=== PATIENT | male | born 1955 | race Two or more races ===

== ENCOUNTER 2017-12-07 10:26 | Emergency (ER) | payer MEDICARE, SELFPAY ==
[~2017-12-07] VITALS: Ht 180.3 cm; Wt 85.0 kg
[2017-12-07 12:00] VITALS: BP 137/55
[2017-12-07 12:03] LABS: ANION GAP 9 mmol/L (5-15); CHLORIDE 107 mmol/L (98-107)
[2017-12-07 12:04] LABS: INTERNATIONAL NORMALIZED RATIO 1.71 (0.93-1.1); PROTHROMBIN TIME 17.6 Seconds (9.6-11.5)
[2017-12-07 12:09] LABS: ALANINE AMINOTRANSFERASE 24 U/L (12-78); ALKALINE PHOSPHATASE 122 U/L (45-117); BILIRUBIN,TOTAL 3.3 mg/dL (0.2-1.0); CREATININE 0.86 mg/dL (0.7-1.3); TOTAL PROTEIN 5.9 g/dL (6.4-8.2); TROPONIN I < 0.015 ng/mL (0.000-0.045)
[2017-12-07 12:27] LABS: MEAN CORPUSCULAR HGB CONC 30.5 g/dL (33.2-36.2); MEAN CORPUSCULAR VOLUME 65.4 fL (81-97); MEAN PLATELET VOLUME 8.4 fL (7.4-10.4); PLATELET COUNT 177 x10^3/uL (130-400); RED BLOOD COUNT 3.13 x10^6/uL (4.38-5.82); RED CELL DISTRIBUTION WIDTH 26.1 % (9.4-14.8)
[2017-12-07 12:29] LABS: MD YES
[2017-12-07 12:55] LABS: LYMPH#(MANUAL) 0.54 x10^3/uL (1-3.4); LYMPHS% (MANUAL) 10 % (22-44); MONOS#(MANUAL) 0.49 x10^3/uL (0.3-2.7); MONOS% (MANUAL) 9 % (2-9); SEG#(MANUAL) 4.37 x10^3/uL (1.8-6.8); SEGS% (MANUAL) 81 % (42-75)
[2017-12-07 12:56] LABS: ANISOCYTOSIS 3+; MICROCYTOSIS 2+
[2017-12-07 12:57] LABS: HYPOCHROMIA 3+
[2017-12-07 12:58] LABS: OVALOCYTES 1+
[2017-12-07 12:59] LABS: <PLATELET ESTIMATE> ADEQUATE; <PLT MORPHOLOGY> NORMAL PLT MORPH
[2017-12-07 13:02] LABS: SCHISTOCYTES 2+
== END 2017-12-07 13:08 | disposition left against medical advice (07) ==
LOC: ED 12:05
DX: T86.42 Liver transplant failure (principal); D63.8 Anemia in other chronic diseases classified elsewhere
CPT/HCPCS: 36415; 71045; 80053; 83690; 83880; 84484; 85025; 85610; 93005; 99285

== ENCOUNTER 2017-12-17 13:36 | Inpatient (IN) | payer OTHER ==
[~2017-12-17] VITALS: Ht 172.7 cm; Wt 84.4 kg
[2017-12-17] MEDS ORDERED: ALBUTEROL SULFATE 2.5 MG/3 ML ONE ×2 (13:47→18:16)
[2017-12-17] MEDS ORDERED: SODIUM CHLORIDE 0.9%, 500ML IVBOLUS ONE (14:00)
[2017-12-17] MEDS ORDERED: SODIUM CHLORIDE FLUSH 10ML SYR IVF ONE (14:00)
[2017-12-17] MEDS ORDERED: PROPOFOL 100 ML IV PRN (14:12)
[2017-12-17] MEDS ORDERED: FENTANYL PF 100 MCG/2ML ONE (14:14)
[2017-12-17] MEDS ORDERED: ROCURONIUM 10 MG/ML,10ML IVPush ONE (14:30)
[2017-12-17] MEDS ORDERED: FENTANYL PF 100 MCG/2ML IV ONE (14:30)
[2017-12-17] MEDS ORDERED: ETOMIDATE 20 MG/10 ML IVPush ONE (14:30)
[2017-12-17 14:34] LABS: ALANINE AMINOTRANSFERASE 24 U/L (12-78); ALBUMIN 1.7 g/dL (3.4-5.0); ANION GAP 12 mmol/L (5-15); CALCIUM 8.3 mg/dL (8.5-10.1); CHLORIDE 105 mmol/L (98-107); CREATININE 1.43 mg/dL (0.7-1.3)
[2017-12-17 14:37] LABS: ALKALINE PHOSPHATASE 153 U/L (45-117); BILIRUBIN,TOTAL 6.2 mg/dL (0.2-1.0); SALICYLATE LEVEL < 1.7 mg/dL (2.8-20.0)
[2017-12-17 14:38] LABS: ACETAMINOPHEN < 2 mcg/mL (10-30)
[2017-12-17] MEDS ORDERED: SODIUM CHLORIDE 0.9% 1,000ML IVBOLUS ONE ×2 (15:00→22:30)
[2017-12-17] MEDS ORDERED: AMPICILLIN/SULBACTAM 3 GM in SODIUM CHLORIDE 0.9% 100 ML IV ONE (15:00)
[2017-12-17 15:06] LABS: INTERNATIONAL NORMALIZED RATIO 2.39 (0.93-1.1); PROTHROMBIN TIME 24.4 Seconds (9.6-11.5)
[2017-12-17 15:08] LABS: MEAN CORPUSCULAR HEMOGLOBIN 20.3 pg (27.5-34.5); MEAN CORPUSCULAR HGB CONC 30.5 g/dL (33.2-36.2); MEAN CORPUSCULAR VOLUME 66.5 fL (81-97); MEAN PLATELET VOLUME 7.6 fL (7.4-10.4); PLATELET COUNT 370 x10^3/uL (130-400); RED BLOOD COUNT 3.85 x10^6/uL (4.38-5.82); RED CELL DISTRIBUTION WIDTH 27.3 % (9.4-14.8)
[2017-12-17 15:13] LABS: MICROSCOPIC INDICATED
[2017-12-17 15:15] LABS: CULTURE INDICATED? NO
[2017-12-17 15:29] LABS: MD YES
[2017-12-17 15:32] LABS: ANISOCYTOSIS 3+; BAND#(MANUAL) 1.54 x10^3/uL; BANDS%(MANUAL) 4 % (0-7); HYPOCHROMIA 2+; LYMPH#(MANUAL) 0.77 x10^3/uL (1-3.4); LYMPHS% (MANUAL) 2 % (22-44); MICROCYTOSIS 2+; MONOS#(MANUAL) 0.77 x10^3/uL (0.3-2.7); MONOS% (MANUAL) 2 % (2-9); OVALOCYTES 1+; POLYCHROMASIA 1+; SEG#(MANUAL) 35.33 x10^3/uL (1.8-6.8); SEGS% (MANUAL) 92 % (42-75)
[2017-12-17 15:33] LABS: <PLATELET ESTIMATE> ADEQUATE; <PLT MORPHOLOGY> NORMAL PLT MORPH
[2017-12-17 15:34] LABS: ACANTHOCYTES 1+
[2017-12-17] MEDS ORDERED: LORazepam 2 MG/ML, 1ML IVPush PRN (16:00)
[2017-12-17] MEDS ORDERED: ENALAPRILAT 1.25 MG/ML, 2ML IVPush PRN (16:00)
[2017-12-17] MEDS ORDERED: OXYcodone IR 5MG TABLET PO PRN (16:00)
[2017-12-17] MEDS ORDERED: ACETAMINOPHEN 325 MG TABLET PO PRN (16:00)
[2017-12-17] MEDS ORDERED: LABETALOL 5MG/ML, 20ML IVPush PRN (16:00)
[2017-12-17] MEDS ORDERED: ONDANSETRON ODT 4 MG PO PRN (16:00)
[2017-12-17] MEDS ORDERED: BISACODYL 10 MG SUPP PR PRN (16:00)
[2017-12-17] MEDS ORDERED: ONDANSETRON 2MG/ML, 2ML IVPush PRN (16:00)
[2017-12-17] MEDS ORDERED: POLYETHYLENE GLYCOL 17 GM PACKET PO PRN (16:00)
[2017-12-17 16:03] LABS: TROPONIN I < 0.015 ng/mL (0.000-0.045)
[2017-12-17 16:22] LABS: THYROID STIMULATING HORMONE 0.911 mIU/L (0.358-3.740)
[2017-12-17] MEDS: SODIUM CHLORIDE 0.9% 1,000 ML IV SCH (16:24)
[2017-12-17] MEDS ORDERED: LIDOCAINE-MPF 1%, 2ML ENDO PRN (16:30)
[2017-12-17] MEDS ORDERED: PHARMACY MAY ADJ FOR RENAL FX MC SCH (16:30)
[2017-12-17] MEDS ORDERED: ROCURONIUM 10 MG/ML,10ML ONE (16:31)
[2017-12-17] MEDS ORDERED: PROPOFOL 10 MG/ML, 100ML IV ONE (16:31)
[2017-12-17] MEDS ORDERED: ETOMIDATE 20 MG/10 ML ONE (16:31)
[2017-12-17 16:57] VITALS: BP 123/77
[2017-12-17] MEDS ORDERED: LACTULOSE 20 GM/30 ML UDC PO SCH (21:00)
[2017-12-17] MEDS: AMPICILLIN/SULBACTAM 3 GM in SODIUM CHLORIDE 0.9% 100 ML IV SCH (21:33)
[2017-12-17 21:37] LABS: TROPONIN I 0.404 ng/mL (0.000-0.045)
[2017-12-17] MEDS: PROPOFOL 100 ML IV PRN (22:29)
[2017-12-17] MEDS ORDERED: ALBUTEROL/IPRATROPIUM 2.5MG/0.5MG, 3 ML NPPB SCH (23:00)
[2017-12-17] MEDS: ALBUTEROL/IPRATROPIUM 2.5MG/0.5MG, 3 ML INLINE SCH (23:26)
[2017-12-18] MEDS: SODIUM CHLORIDE 0.9% 1,000 ML IV SCH (01:41)
[2017-12-18] MEDS: ALBUTEROL/IPRATROPIUM 2.5MG/0.5MG, 3 ML INLINE SCH ×6 (03:00→22:28)
[2017-12-18] MEDS: AMPICILLIN/SULBACTAM 3 GM in SODIUM CHLORIDE 0.9% 100 ML IV SCH ×4 (03:13→21:35)
[2017-12-18 04:00] VITALS: BP 103/50
[2017-12-18 04:49] LABS: ALANINE AMINOTRANSFERASE 22 U/L (12-78); ALBUMIN 1.6 g/dL (3.4-5.0); ANION GAP 22 mmol/L (5-15); CALCIUM 8.5 mg/dL (8.5-10.1); CHLORIDE 105 mmol/L (98-107); CREATININE 2.16 mg/dL (0.7-1.3)
[2017-12-18 04:51] LABS: PROTHROMBIN TIME 30.5 Seconds (9.6-11.5)
[2017-12-18 04:52] LABS: ALKALINE PHOSPHATASE 141 U/L (45-117); BILIRUBIN,TOTAL 5.3 mg/dL (0.2-1.0); CHOL/HDL RATIO 2.1; CHOLESTEROL, TOTAL 72 mg/dL (140-239); HDL CHOL % 47 % (26-37); HDL CHOLESTEROL (DIRECT) 34 mg/dL (40-60); MEAN CORPUSCULAR HEMOGLOBIN 20.1 pg (27.5-34.5); MEAN CORPUSCULAR HGB CONC 30.2 g/dL (33.2-36.2); MEAN CORPUSCULAR VOLUME 66.6 fL (81-97); MEAN PLATELET VOLUME 7.9 fL (7.4-10.4); PLATELET COUNT 265 x10^3/uL (130-400); RED BLOOD COUNT 3.49 x10^6/uL (4.38-5.82); RED CELL DISTRIBUTION WIDTH 25.9 % (9.4-14.8); TOTAL PROTEIN 5.1 g/dL (6.4-8.2)
[2017-12-18 04:54] LABS: LDL CHOLESTEROL,CALCULATED 25 mg/dL (54-169); LDL/HDL RATIO 0.7 (0.5-3.0); TRIGLYCERIDES 63 mg/dL (50-200); VLDL CHOLESTEROL 13 mg/dL (0-25)
[2017-12-18] MEDS: PROPOFOL 100 ML IV PRN ×2 (05:23→15:23)
[2017-12-18 05:30] LABS: AMPHETAMINE SCREEN, URINE Negative (Negative); BARBITURATE SCREEN, URINE Negative (Negative); BENZODIAZEPINE SCREEN, URINE Negative (Negative); CANNABINOID SCREEN, URINE Negative (Negative); COCAINE SCREEN, URINE Negative (Negative); METHADONE SCREEN, URINE Positive (Negative); OPIATE SCREEN, URINE Negative (Negative)
[2017-12-18] MEDS ORDERED: DEXTROSE 50%, 50ML SYRINGE IVPush ONE (05:30)
[2017-12-18 05:47] LABS: MD YES
[2017-12-18 05:50] LABS: BAND#(MANUAL) 6.95 x10^3/uL; BANDS%(MANUAL) 17 % (0-7); LYMPH#(MANUAL) 1.64 x10^3/uL (1-3.4); LYMPHS% (MANUAL) 4 % (22-44); MONOS#(MANUAL) 1.23 x10^3/uL (0.3-2.7); MONOS% (MANUAL) 3 % (2-9); SEG#(MANUAL) 31.08 x10^3/uL (1.8-6.8); SEGS% (MANUAL) 76 % (42-75)
[2017-12-18 05:51] LABS: ANISOCYTOSIS 2+
[2017-12-18 05:53] LABS: HYPOCHROMIA 2+; MICROCYTOSIS 2+; OVALOCYTES 1+; POLYCHROMASIA 1+
[2017-12-18 05:54] LABS: SCHISTOCYTES 1+
[2017-12-18 05:56] LABS: <PLATELET ESTIMATE> ADEQUATE; <PLT MORPHOLOGY> NORMAL PLT MORPH
[2017-12-18] MEDS: PANTOPRAZOLE 40 MG IV IVPush SCH (08:19)
[2017-12-18] MEDS: SODIUM BICARB 8.4%,50ML SYR. 50 MEQ in D5%-0.45% NACL 1,000 ML IV SCH ×2 (08:41→17:35)
[2017-12-18] MEDS: SENNA/DOCUSATE TABLET PO SCH (08:41)
[2017-12-18] MEDS: LINEZOLID PMX 600MG/300ML 300 ML IV SCH ×2 (08:53→21:57)
[2017-12-19] MEDS: morphine SULFATE 10 MG/ML, 1ML IVPush PRN ×6 (00:35→21:43)
[2017-12-19] MEDS: ALBUTEROL/IPRATROPIUM 2.5MG/0.5MG, 3 ML INLINE SCH ×3 (02:13→10:10)
[2017-12-19] MEDS: SODIUM BICARB 8.4%,50ML SYR. 50 MEQ in D5%-0.45% NACL 1,000 ML IV SCH ×2 (02:38→11:16)
[2017-12-19] MEDS: AMPICILLIN/SULBACTAM 3 GM in SODIUM CHLORIDE 0.9% 100 ML IV SCH ×2 (03:19→09:00)
[2017-12-19 04:39] LABS: MEAN CORPUSCULAR HEMOGLOBIN 20.4 pg (27.5-34.5); MEAN CORPUSCULAR HGB CONC 30.5 g/dL (33.2-36.2); MEAN CORPUSCULAR VOLUME 66.8 fL (81-97); PLATELET COUNT 164 x10^3/uL (130-400); RED BLOOD COUNT 3.03 x10^6/uL (4.38-5.82); RED CELL DISTRIBUTION WIDTH 27.3 % (9.4-14.8)
[2017-12-19 05:13] LABS: MD YES
[2017-12-19 05:15] LABS: BANDS%(MANUAL) 1 % (0-7); LYMPH#(MANUAL) 0.59 x10^3/uL (1-3.4); LYMPHS% (MANUAL) 3 % (22-44); MONOS% (MANUAL) 1 % (2-9); SEG#(MANUAL) 18.62 x10^3/uL (1.8-6.8); SEGS% (MANUAL) 95 % (42-75)
[2017-12-19 05:16] LABS: ANISOCYTOSIS 1+; HYPOCHROMIA 1+; MICROCYTOSIS 1+; POLYCHROMASIA 1+
[2017-12-19 05:17] LABS: ACANTHOCYTES 1+; OVALOCYTES 1+; SCHISTOCYTES 1+
[2017-12-19 05:19] LABS: <PLATELET ESTIMATE> ADEQUATE; <PLT MORPHOLOGY> NORMAL PLT MORPH
[2017-12-19 05:49] LABS: ALBUMIN 1.4 g/dL (3.4-5.0); ANION GAP 13 mmol/L (5-15); CALCIUM 7.8 mg/dL (8.5-10.1); CHLORIDE 105 mmol/L (98-107)
[2017-12-19 05:53] LABS: ALANINE AMINOTRANSFERASE 29 U/L (12-78); ALKALINE PHOSPHATASE 121 U/L (45-117); BILIRUBIN,TOTAL 5.2 mg/dL (0.2-1.0); CREATININE 1.59 mg/dL (0.7-1.3); TOTAL PROTEIN 4.7 g/dL (6.4-8.2)
[2017-12-19 07:12] VITALS: BP 103/53
[2017-12-19 07:27] VITALS: BP 111/59
[2017-12-19] MEDS: PANTOPRAZOLE 40 MG IV IVPush SCH (08:39)
[2017-12-19] MEDS: LINEZOLID PMX 600MG/300ML 300 ML IV SCH (08:40)
[2017-12-19] MEDS: SENNA/DOCUSATE TABLET PO SCH (08:40)
[2017-12-19] MEDS: PROPOFOL 100 ML IV PRN (09:50)
[2017-12-19 10:00] VITALS: BP 92/49
[2017-12-19] MEDS ORDERED: morphine SULFATE 10 MG/ML, 1ML IVPush ONE (13:30)
[2017-12-19] MEDS ORDERED: ATROPINE OPHTH SOLN 1%, 5ML PO PRN (13:30)
[2017-12-19] MEDS: LORazepam 2 MG/ML, 1ML IVPush PRN ×6 (13:42→21:43)
[2017-12-20] MEDS: morphine SULFATE 10 MG/ML, 1ML IVPush PRN ×5 (00:05→08:29)
[2017-12-20] MEDS: ATROPINE OPHTH SOLN 1%, 2ML PO PRN ×6 (00:05→14:58)
[2017-12-20] MEDS: LORazepam 2 MG/ML, 1ML IVPush PRN ×4 (04:13→14:54)
== END 2017-12-20 23:07 | disposition expired | DRG 871 ==
LOC: ED 14:24 → EDIP 15:35 → CCU 16:05 → 3NW 12-19 16:47
PROVIDERS: ADMIT Internal Medicine; ATTEND Internal Medicine
PROC: 0T9B70Z Drainage of Bladder with Drainage Device, Via Natural or Artificial Opening (ICD-10-PCS; principal; 2017-12-17)
PROC: 0BH17EZ Insertion of Endotracheal Airway into Trachea, Via Natural or Artificial Opening (ICD-10-PCS; 2017-12-17)
PROC: 5A1945Z Respiratory Ventilation, 24-96 Consecutive Hours (ICD-10-PCS; 2017-12-17)
PROC: 30233N1 Transfusion of Nonautologous Red Blood Cells into Peripheral Vein, Percutaneous Approach (ICD-10-PCS; 2017-12-19)
DX: A41.9 Sepsis, unspecified organism (principal); J69.0 Pneumonitis due to inhalation of food and vomit; J15.5 Pneumonia due to Escherichia coli; J96.01 Acute respiratory failure with hypoxia; E43 Unspecified severe protein-calorie malnutrition; N17.0 Acute kidney failure with tubular necrosis; D62 Acute posthemorrhagic anemia; D68.69 Other thrombophilia; E87.2 Acidosis; J90 Pleural effusion, not elsewhere classified; K92.2 Gastrointestinal hemorrhage, unspecified; Z99.11 Dependence on respirator [ventilator] status; Z94.4 Liver transplant status; B19.20 Unspecified viral hepatitis C without hepatic coma; E87.6 Hypokalemia; K70.30 Alcoholic cirrhosis of liver without ascites; K70.40 Alcoholic hepatic failure without coma; R65.20 Severe sepsis without septic shock; Z51.5 Encounter for palliative care; Y90.9 Presence of alcohol in blood, level not specified; Z66 Do not resuscitate; F10.10 Alcohol abuse, uncomplicated; R16.1 Splenomegaly, not elsewhere classified; Z91.19 Patient's noncompliance with other medical treatment and regimen; Z68.28 Body mass index [BMI] 28.0-28.9, adult
CPT/HCPCS: 36415; 36600; 51702; 99285; J7620; 70450; 71045; 76700; 80053; 80061; 80307; 80329; 81001; 82140; 82550; 82728; 82803; 82962; 83540; 83550; 83605; 83690; 83735; 84100; 84443; 84478; 84484; 85025; 85610; 85730; 86850; 86900; 86923; 87040; 87070; 87081; 87186; 87205; 93005; 94002; 94003; 94640; G0378; J0295; J2020; J2270; J2704; J3010; C9113; G0480; J2060; J7030; J7040; P9016